=== PATIENT | female | born 1995 | race Native Hawaiian/Other Pacific Islander ===

== ENCOUNTER 2020-08-05 06:52 | Emergency (ER) | payer OTHER ==
[~2020-08-05] VITALS: Ht 165.1 cm; Wt 50.8 kg
[2020-08-05 06:55] VITALS: TEMP 98.8
[2020-08-05 07:40] VITALS: BP 116/72
== END 2020-08-05 07:40 | disposition home or self-care (01) ==
LOC: ED 06:52
DX: N39.0 Urinary tract infection, site not specified (principal)
CPT/HCPCS: 81000; 81025; 99283